=== PATIENT | male | born 1995 | race Caucasian/White ===

== ENCOUNTER 2020-05-28 11:33 | Day surgery (SDC) | payer OTHER ==
[~2020-05-28] VITALS: Ht 172.7 cm; Wt 100.8 kg
[~2020-05-28 11:33] MED LIST: CEFA500; HYDACE5
--- NOTE | 2020-05-28 15:24 | NUR ---
05/28/20 1524 Wadley,Lita TORO NOTIFIED FOR NO RELIEF OF PAIN. ORDER TO GIVE 50MCG GIVEN AND DR. PARSONS CALLED.
== END 2020-05-28 17:24 | disposition home or self-care (01) ==
LOC: ORSCSDS 11:33
PROVIDERS: Orthopaedic Surgery
PROC: 0SQC4ZZ Repair Right Knee Joint, Percutaneous Endoscopic Approach (ICD-10-PCS; principal; 2020-05-28 13:30)
PROC: 0MRN47Z Replacement of Right Knee Bursa and Ligament with Autologous Tissue Substitute, Percutaneous Endoscopic Approach (ICD-10-PCS; principal; 2020-05-28 13:30)
DX: S83.511A Sprain of anterior cruciate ligament of right knee, initial encounter (principal); S83.241A Other tear of medial meniscus, current injury, right knee, initial encounter; S83.281A Other tear of lateral meniscus, current injury, right knee, initial encounter; F17.210 Nicotine dependence, cigarettes, uncomplicated; E66.9 Obesity, unspecified; Z68.34 Body mass index [BMI] 34.0-34.9, adult
CPT/HCPCS: A9270; C1713; J0171; J0690; J1100; J1170; J1885; J2250; J2405; J2704; J3010; J7120